=== PATIENT | female | born 1985 | race Caucasian/White ===

== ENCOUNTER 2021-12-25 13:58 | Emergency (ER) | payer MEDICAID ==
[~2021-12-25] VITALS: Ht 149.9 cm; Wt 48.2 kg
[~2021-12-25 13:58] MED LIST: ASPI-803; IRON-12
[2021-12-25 15:06] LABS: BASOPHILS # (AUTO) 0.1 X10'3 (0-0.2); BASOPHILS % (AUTO) 1.1 % (0-1); EOSINOPHILS # (AUTO) 0.7 X10'3 (0-0.9); EOSINOPHILS % (AUTO) 6.5 % (0-6); HEMATOCRIT 44.4 % (35.0-45.0); HEMOGLOBIN 14.8 g/dl (12.0-16.0); LYMPHOCYTES # (AUTO) 2.9 X10'3 (1.1-4.8); LYMPHOCYTES % (AUTO) 27.7 % (21-51); MEAN CORPUSCULAR HEMOGLOBIN 27.6 PG (27.0-31.0); MEAN CORPUSCULAR HGB CONC 33.3 g/dL (33.0-36.5); MEAN CORPUSCULAR VOLUME 82.9 FL (78-98); MEAN PLATELET VOLUME 7.2 FL (7.4-10.4); MONOCYTES # (AUTO) 0.8 X10'3 (0-0.9); MONOCYTES % (AUTO) 7.9 % (2-12); NEUTROPHILS # (AUTO) 5.9 X10'3 (1.8-7.7); NEUTROPHILS % (AUTO) 56.8 % (42-75); PLATELET COUNT 438 X10'3 (140-440); RED BLOOD COUNT 5.35 X10'6 (4.20-5.60); RED CELL DISTRIBUTION WIDTH 13.8 % (11.5-14.5); WHITE BLOOD COUNT 10.4 X10'3 (4.5-11.0)
[2021-12-25 15:23] LABS: D-DIMER 0.23 MG/L FEU (0-0.50)
[2021-12-25 15:27] LABS: ALANINE AMINOTRANSFERASE 25 U/L (12-78); ALBUMIN 4.2 G/DL (3.4-5.0); ALBUMIN/GLOBULIN RATIO 1.2 (1.1-1.5); ALKALINE PHOSPHATASE 56 IU/L (46-116); ANION GAP 11 (8-16); ASPARTATE AMINO TRANSFERASE 25 U/L (10-37); BILIRUBIN,TOTAL 0.3 MG/DL (0.1-1.0); BLOOD UREA NITROGEN 14 MG/DL (7-18); BUN/CREATININE RATIO 20.6 (6.6-38.0); CHLORIDE 103 MMOL/L (99-107); CREATININE 0.68 MG/DL (0.40-0.90); GLUCOSE 97 MG/DL (70-104); POTASSIUM 3.8 MMOL/L (3.5-5.1); SODIUM 140 MMOL/L (135-145); TOTAL CARBON DIOXIDE 26.4 MMOL/L (24-32); TOTAL PROTEIN 7.8 G/DL (6.4-8.2); eGFR > 90 ML/MIN
[2021-12-25] MEDS ORDERED: PRED20TA PO (15:44)
[2021-12-25] MEDS ORDERED: ALBU6.7H9 INH (15:44)
[2021-12-25] MEDS ORDERED: FLUT16SP2 BOTHNARES (15:44)
[2021-12-25 16:11] VITALS: BP 94/78
== END 2021-12-25 16:15 | disposition home or self-care (01) ==
LOC: ER 13:59
DX: R07.81 Pleurodynia (principal); M54.12 Radiculopathy, cervical region; F17.200 Nicotine dependence, unspecified, uncomplicated; F12.10 Cannabis abuse, uncomplicated; F41.9 Anxiety disorder, unspecified; Z88.8 Allergy status to other drugs, medicaments and biological substances
CPT/HCPCS: 36415; 71045; 80053; 84484; 85025; 85379; 93005; 99285

== ENCOUNTER 2022-04-03 22:02 | Emergency (ER) | payer MEDICAID ==
[~2022-04-03] VITALS: Ht 149.9 cm; Wt 50.0 kg
[~2022-04-03 22:02] MED LIST changes: +ALBU6.7H9 INH; +FLUT16SP2 BOTHNARES
[2022-04-04] MEDS ORDERED: acetaminophen 325mg tablet PO ONE (01:20)
--- NOTE | 2022-04-04 01:20 | NUR ---
Pt reporting 7/10 back and neck pain. MD gave verbal order for 650 mg PO tylenol
[2022-04-04] MEDS ORDERED: CYCL-394 PO (03:09)
[2022-04-04] MEDS ORDERED: cyclobenzaprine 10mg tablet PO ONE (03:10)
[2022-04-04 03:24] VITALS: BP 107/66
== END 2022-04-04 03:28 | disposition home or self-care (01) ==
LOC: ER 22:02
DX: M54.2 Cervicalgia (principal); R07.89 Other chest pain; M54.6 Pain in thoracic spine; F12.90 Cannabis use, unspecified, uncomplicated; Z72.89 Other problems related to lifestyle; Z87.891 Personal history of nicotine dependence; Z88.8 Allergy status to other drugs, medicaments and biological substances; Z91.018 Allergy to other foods; Z79.899 Other long term (current) drug therapy; Z79.82 Long term (current) use of aspirin; V88.9XXA Person injured in other specified (collision)(noncollision) transport accidents involving nonmotor vehicle, nontraffic, initial encounter; Y93.89 Activity, other specified; Y92.89 Other specified places as the place of occurrence of the external cause; Y99.8 Other external cause status
CPT/HCPCS: 99283

== ENCOUNTER 2022-04-06 13:36 | Emergency (ER) | payer MEDICAID ==
[~2022-04-06] VITALS: Ht 149.9 cm; Wt 50.0 kg
[~2022-04-06 13:36] MED LIST changes: +CYCL-394 PO
[2022-04-06 13:45] VITALS: BP 121/72
[2022-04-06] MEDS ORDERED: ONDA4TAB12 PO (14:51)
[2022-04-06] MEDS ORDERED: ORPH100T2 PO (14:51)
== END 2022-04-06 15:12 | disposition home or self-care (01) ==
LOC: ER 13:37
DX: S13.4XXA Sprain of ligaments of cervical spine, initial encounter (principal); G44.319 Acute post-traumatic headache, not intractable; M54.2 Cervicalgia; F41.9 Anxiety disorder, unspecified; F12.10 Cannabis abuse, uncomplicated; F07.81 Postconcussional syndrome; Z88.6 Allergy status to analgesic agent; Z79.899 Other long term (current) drug therapy; Z79.82 Long term (current) use of aspirin; V49.9XXA Car occupant (driver) (passenger) injured in unspecified traffic accident, initial encounter; Y93.89 Activity, other specified; Y92.89 Other specified places as the place of occurrence of the external cause; Y99.8 Other external cause status
CPT/HCPCS: 99283